=== PATIENT | male | born 2005 | race Caucasian/White ===

== ENCOUNTER 2024-05-17 18:03 | Emergency (ER) | payer SELFPAY ==
[2024-05-17] MEDS: Lidocaine 1% 5 ML VIAL INJECT ONE (18:43)
[2024-05-17] MEDS: Amoxicillin/Clavulanate K 400-57 MG/5 ML Susp 100 ML Bottle PO ONE (20:55)
== END 2024-05-17 20:07 | disposition home or self-care (01) ==
LOC: DL.ED 18:03
DX: S02.612A Fracture of condylar process of left mandible, initial encounter for closed fracture (principal); S02.622A Fracture of subcondylar process of left mandible, initial encounter for closed fracture; S02.5XXA Fracture of tooth (traumatic), initial encounter for closed fracture; S01.81XA Laceration without foreign body of other part of head, initial encounter; W01.0XXA Fall on same level from slipping, tripping and stumbling without subsequent striking against object, initial encounter; Y93.89 Activity, other specified
CPT/HCPCS: 12013; 70450; 70486; 99283; A9270-GY; J3490